=== PATIENT | female | born 1965 | race Caucasian/White ===

== ENCOUNTER → 2016-07-08 | Outpatient (CLI) | payer OTHER ==
[~2016-07-08] MED LIST: ALBU6.7H PO; ALPR-475 PO; BUSP15TA PO; CLON1TAB PO; CYAN100063 PO; FLUT1DIS INH; HYDR12.58 PO; METH5TAB2 PO; MULT-26 PO
== END | disposition home or self-care (01) ==
LOC: LAB 10:20
PROVIDERS: ATTEND Internal Medicine Endocrinology, Diabetes & Metabolism
DX: E89.0 Postprocedural hypothyroidism (principal)
CPT/HCPCS: 36415; 84439; 84443

== ENCOUNTER → 2016-10-13 | Outpatient (CLI) | payer OTHER | END | disposition home or self-care (01) | LOC: CFH 10:13 | PROVIDERS: ATTEND Internal Medicine Endocrinology, Diabetes & Metabolism | DX: E89.0 Postprocedural hypothyroidism (principal) | CPT/HCPCS: 36415; 84439; 84443 ==

== ENCOUNTER → 2017-01-12 | Outpatient (CLI) | payer OTHER | END | disposition home or self-care (01) | LOC: CFH 10:13 | PROVIDERS: ATTEND Internal Medicine Endocrinology, Diabetes & Metabolism | DX: E89.0 Postprocedural hypothyroidism (principal) | CPT/HCPCS: 36415; 84439; 84443 ==

== ENCOUNTER → 2017-04-15 | Outpatient (CLI) | payer OTHER ==
[2017-04-15 12:57] LABS: FREE T4 (FREE THYROXINE) 0.99 ng/dL (0.76-1.46); THYROID STIMULATING HORMONE 0.385 mIU/L (0.358-3.740)
== END | disposition home or self-care (01) ==
LOC: CFH 07:15
PROVIDERS: ATTEND Internal Medicine Endocrinology, Diabetes & Metabolism
DX: E89.0 Postprocedural hypothyroidism (principal)
CPT/HCPCS: 36415; 84439; 84443; 86800

== ENCOUNTER → 2017-10-13 | Outpatient (CLI) | payer OTHER ==
[2017-10-13 12:53] LABS: FREE T4 (FREE THYROXINE) 0.79 ng/dL (0.76-1.46); THYROID STIMULATING HORMONE 1.05 mIU/L (0.358-3.740)
== END | disposition home or self-care (01) ==
LOC: CFH 06:36
PROVIDERS: ATTEND Internal Medicine Endocrinology, Diabetes & Metabolism
DX: E89.0 Postprocedural hypothyroidism (principal)
CPT/HCPCS: 36415; 84439; 84443

== ENCOUNTER → 2017-10-18 | Outpatient (CLI) | payer OTHER | END | disposition home or self-care (01) | LOC: CFH 11:18 | PROVIDERS: ATTEND Internal Medicine Endocrinology, Diabetes & Metabolism | DX: E89.0 Postprocedural hypothyroidism (principal) | CPT/HCPCS: 36415; 84432; 86800 ==

== ENCOUNTER → 2018-01-05 | Outpatient (CLI) | payer OTHER | END | disposition home or self-care (01) | LOC: CFH 07:25 | PROVIDERS: ATTEND Family Medicine | DX: Z12.31 Encounter for screening mammogram for malignant neoplasm of breast (principal) | CPT/HCPCS: 77067 ==

== ENCOUNTER → 2018-01-11 | Outpatient (CLI) | payer OTHER ==
[2018-01-11 16:11] LABS: FREE T4 (FREE THYROXINE) 0.9 ng/dL (0.76-1.46); THYROID STIMULATING HORMONE 0.822 mIU/L (0.358-3.740)
== END | disposition home or self-care (01) ==
LOC: CFH 11:20
PROVIDERS: ATTEND Internal Medicine Endocrinology, Diabetes & Metabolism
DX: E89.0 Postprocedural hypothyroidism (principal)
CPT/HCPCS: 36415; 84432; 84439; 84443; 86800

== ENCOUNTER → 2018-05-16 | Outpatient (CLI) | payer OTHER ==
[~2018-05-16] MED LIST changes: -HYDR12.58 PO; +HYDROCHLOROTH12.5 MG PO
[2018-05-16 16:08] LABS: FREE T4 (FREE THYROXINE) 1.09 ng/dL (0.76-1.46); THYROID STIMULATING HORMONE 0.278 mIU/L (0.358-3.740)
== END | disposition home or self-care (01) ==
LOC: CFH 12:38
PROVIDERS: ATTEND Internal Medicine Endocrinology, Diabetes & Metabolism
DX: E89.0 Postprocedural hypothyroidism (principal)
CPT/HCPCS: 36415; 84432; 84439; 84443; 86800

== ENCOUNTER → 2018-07-21 | Outpatient (CLI) | payer OTHER ==
[2018-07-21 13:51] LABS: FREE T4 (FREE THYROXINE) 0.99 ng/dL (0.76-1.46); THYROID STIMULATING HORMONE 1.11 mIU/L (0.358-3.740)
== END | disposition home or self-care (01) ==
LOC: CFH 10:50
PROVIDERS: ATTEND Internal Medicine Endocrinology, Diabetes & Metabolism
DX: E89.0 Postprocedural hypothyroidism (principal)
CPT/HCPCS: 36415; 84439; 84443

== ENCOUNTER 2018-10-27 09:45 | Outpatient (CLI) | payer OTHER ==
[~2018-10-27 09:45] MED LIST changes: -ALBU6.7H PO; +ALBU6.7H8 PO; -ALPR-475 PO; +ALPR0.5T7 PO
[2018-10-27 13:37] LABS: FREE T4 (FREE THYROXINE) 0.98 ng/dL (0.76-1.46)
== END 2018-10-27 23:59 | disposition home or self-care (01) ==
LOC: CFH 09:45
PROVIDERS: ATTEND Internal Medicine Endocrinology, Diabetes & Metabolism
DX: E89.0 Postprocedural hypothyroidism (principal)
CPT/HCPCS: 36415; 84432; 84439; 84443; 86800

== ENCOUNTER → 2019-02-08 | Outpatient (CLI) | payer OTHER | END | disposition home or self-care (01) | LOC: CFH 07:24 | PROVIDERS: ATTEND Family Medicine | DX: Z12.31 Encounter for screening mammogram for malignant neoplasm of breast (principal); Z87.891 Personal history of nicotine dependence; Z80.3 Family history of malignant neoplasm of breast | CPT/HCPCS: 77063; 77067 ==

== ENCOUNTER 2019-04-27 14:04 | Outpatient (CLI) | payer OTHER ==
[2019-04-27 15:58] LABS: FREE T4 (FREE THYROXINE) 1.16 ng/dL (0.76-1.46)
== END 2019-04-27 23:59 | disposition home or self-care (01) ==
LOC: CFH 14:04
PROVIDERS: ATTEND Physician Assistant Medical
DX: E89.0 Postprocedural hypothyroidism (principal); Z85.850 Personal history of malignant neoplasm of thyroid
CPT/HCPCS: 36415; 84432; 84439; 84443; 86800

== ENCOUNTER → 2019-08-08 | Outpatient (CLI) | payer OTHER | END | disposition home or self-care (01) | LOC: CFH 11:28 | PROVIDERS: ATTEND Internal Medicine Endocrinology, Diabetes & Metabolism | DX: E89.0 Postprocedural hypothyroidism (principal) | CPT/HCPCS: 36415; 84443 ==

== ENCOUNTER 2019-09-13 11:04 | Outpatient (CLI) | payer OTHER ==
[2019-09-13 12:48] LABS: MICROSCOPIC NOT IND
[2019-09-13 12:53] LABS: BASOPHILS # (AUTO) 0.04 x10^3/uL (0-0.1); BASOPHILS % (AUTO) 1 % (0-1); EOSINOPHILS # (AUTO) 0.03 x10^3/uL (0-0.4); EOSINOPHILS % (AUTO) 1 % (1-7); LYMPHOCYTES # (AUTO) 1.89 x10^3/uL (1-3.4); LYMPHOCYTES % (AUTO) 29 % (22-44); MD NO; MEAN CORPUSCULAR HGB CONC 32.4 g/dL (32.4-35.8); MEAN CORPUSCULAR VOLUME 86.3 fL (80-100); MEAN PLATELET VOLUME 8.9 fL (7.4-10.4); MONOCYTES # (AUTO) 0.33 x10^3/uL (0.2-0.8); MONOCYTES % (AUTO) 5 % (2-9); NEUTROPHILS # (AUTO) 4.22 x10^3/uL (1.8-6.8); NEUTROPHILS % (AUTO) 65 % (42-75); PLATELET COUNT 246 x10^3/uL (130-400); RED BLOOD COUNT 5.93 x10^6/uL (3.82-5.3); RED CELL DISTRIBUTION WIDTH 14.4 % (9.6-15.2)
[2019-09-13 12:55] LABS: CHLORIDE 105 mmol/L (98-107)
[2019-09-13 13:05] LABS: ALANINE AMINOTRANSFERASE 49 U/L (12-78); ALBUMIN 4.5 g/dL (3.4-5.0); ALKALINE PHOSPHATASE 65 U/L (45-117); ANION GAP 6 mmol/L (5-15); BILIRUBIN,TOTAL 0.5 mg/dL (0.2-1.0); CALCIUM 9.7 mg/dL (8.5-10.1); CREATININE 0.94 mg/dL (0.55-1.02); TOTAL PROTEIN 7.9 g/dL (6.4-8.2)
[2019-09-13] MEDS ORDERED: OMNIPAQUE 350 MG/ML, 100ML BOTTLE ONE (15:08)
== END 2019-09-13 23:59 | disposition home or self-care (01) ==
LOC: CFH 11:04
PROVIDERS: ATTEND Nurse Practitioner Family
DX: K76.0 Fatty (change of) liver, not elsewhere classified (principal); M51.36 Other intervertebral disc degeneration, lumbar region
CPT/HCPCS: 36415; 74177; 80053; 81003; 85025; 87086; Q9967

== ENCOUNTER 2019-09-15 08:42 | Outpatient (CLI) | payer OTHER ==
[2019-09-15] MEDS ORDERED: GADOTERATE 10 MMOL/20 ML VIAL ONE (10:30)
[2019-10-11] MEDS ORDERED: LIDO700A20 TD (11:04)
[2019-10-11] MEDS ORDERED: LEVO25TA2 PO (11:04)
[2019-10-11] MEDS ORDERED: armour thyroid PO (11:04)
[2019-10-11] MEDS ORDERED: ALPR0.25 PO (11:04)
== END 2019-09-15 23:59 | disposition home or self-care (01) ==
LOC: CFH 08:42
PROVIDERS: ATTEND Nurse Practitioner Family
DX: N28.89 Other specified disorders of kidney and ureter (principal); K76.89 Other specified diseases of liver
CPT/HCPCS: 74183; A9575

== ENCOUNTER → 2019-10-09 | Outpatient (CLI) | payer OTHER ==
[~2019-10-09] MED LIST changes: +ALPR0.25 PO; +LEVO25TA2 PO; +LIDO700A20 TD; +armour thyroid PO
[2019-10-09 15:40] LABS: BASOPHILS # (AUTO) 0.05 x10^3/uL (0-0.1); BASOPHILS % (AUTO) 1 % (0-1); EOSINOPHILS # (AUTO) 0.08 x10^3/uL (0-0.4); EOSINOPHILS % (AUTO) 1 % (1-7); LYMPHOCYTES # (AUTO) 2.16 x10^3/uL (1-3.4); LYMPHOCYTES % (AUTO) 26 % (22-44); MD NO; MEAN CORPUSCULAR HEMOGLOBIN 28.3 pg (27.0-34.8); MEAN CORPUSCULAR VOLUME 85.8 fL (80-100); MEAN PLATELET VOLUME 8.7 fL (7.4-10.4); MONOCYTES # (AUTO) 0.38 x10^3/uL (0.2-0.8); MONOCYTES % (AUTO) 5 % (2-9); NEUTROPHILS # (AUTO) 5.74 x10^3/uL (1.8-6.8); NEUTROPHILS % (AUTO) 68 % (42-75); PLATELET COUNT 239 x10^3/uL (130-400); RED CELL DISTRIBUTION WIDTH 14.6 % (9.6-15.2)
[2019-10-09 15:51] LABS: ANION GAP 7 mmol/L (5-15); CALCIUM 9.6 mg/dL (8.5-10.1); CHLORIDE 103 mmol/L (98-107); CREATININE 1.03 mg/dL (0.55-1.02)
[2019-10-09 16:21] LABS: INTERNATIONAL NORMALIZED RATIO 0.91 (0.93-1.1); PROTHROMBIN TIME 9.6 Seconds (9.6-11.5)
== END | disposition home or self-care (01) ==
LOC: CFH 14:18
PROVIDERS: ATTEND Student in an Organized Health Care Education/Training Program
DX: N28.89 Other specified disorders of kidney and ureter (principal); Z79.01 Long term (current) use of anticoagulants
CPT/HCPCS: 36415; 80048; 81003; 85025; 85610; 85730; 87086

== ENCOUNTER 2019-10-16 10:57 | Day surgery (SDC) | payer OTHER ==
[~2019-10-16] VITALS: Ht 156.2 cm; Wt 73.4 kg
[2019-10-16] MEDS ORDERED: LACTATED RINGERS 1,000 ML IV SCH (11:25)
[2019-10-16 11:29] VITALS: BP 119/85
[2019-10-16] MEDS ORDERED: CHLORHEXIDINE 15 ML UDC MM ONE (11:30)
[2019-10-16] MEDS ORDERED: MIDAZOLAM 1 MG/ML, 2ML ONE (12:48)
[2019-10-16] MEDS ORDERED: FENTANYL PF 250 MCG/5ML ONE (12:48)
[2019-10-16] MEDS ORDERED: ONDANSETRON 2MG/ML, 2ML ONE ×2 (12:48)
[2019-10-16] MEDS ORDERED: ROCURONIUM 10MG/ML,5ML ONE (12:48)
[2019-10-16] MEDS ORDERED: PROPOFOL 10 MG/ML, 20ML ONE (12:48)
[2019-10-16] MEDS ORDERED: SUCCINYLCHOLINE 20 MG/ML, 10ML ONE (12:48)
[2019-10-16] MEDS ORDERED: CEFAZOLIN 1,000 MG ONE (12:48)
[2019-10-16] MEDS ORDERED: DIPHENHYDRAMINE 50 MG/ML, 1ML IVPush PRN (13:30)
[2019-10-16] MEDS ORDERED: LABETALOL 5MG/ML, 20ML IV PRN (13:30)
[2019-10-16] MEDS ORDERED: ONDANSETRON 2MG/ML, 2ML IVPush PRN (13:30)
[2019-10-16] MEDS ORDERED: hydrALAzine 20 MG/ML, 1ML IV PRN (13:30)
[2019-10-16] MEDS ORDERED: MIDAZOLAM 1 MG/ML, 2ML IV PRN (13:30)
[2019-10-16] MEDS ORDERED: EPHEDRINE 50 MG/ML, 1ML IVPush PRN (13:30)
[2019-10-16] MEDS ORDERED: HYDROmorphone 1 MG/ML, 1ML INJ IVPush PRN (13:30)
[2019-10-16] MEDS ORDERED: PROMETHAZINE 12.5 MG SUPP PR PRN (13:30)
[2019-10-16] MEDS ORDERED: KETOROLAC 30 MG/1 ML IVPush PRN (13:30)
[2019-10-16] MEDS ORDERED: ALBUTEROL SULFATE 2.5 MG/3 ML NPPB PRN (13:30)
[2019-10-16] MEDS ORDERED: MEPERIDINE/PF 25MG/0.5ML IVPush PRN (13:30)
[2019-10-16] MEDS ORDERED: DIAZEPAM 5 MG/ML, 2ML IVPush PRN (13:30)
[2019-10-16] MEDS ORDERED: PROMETHAZINE 25 MG/ML, 1ML IVPush PRN (13:30)
[2019-10-16] MEDS ORDERED: OMNIPAQUE 350 MG/ML, 50 ML BOTTLE ONE (13:32)
[2019-10-16] MEDS ORDERED: KETOROLAC 30 MG/1 ML ONE (13:34)
[2019-10-16] MEDS ORDERED: FENTANYL PF 100 MCG/2ML ONE (13:50)
[2019-10-16] MEDS: FENTANYL PF 100 MCG/2ML IV PRN ×2 (13:52→13:58)
[2019-10-16] MEDS ORDERED: MEPERIDINE/PF 25MG/ML,1ML ONE (13:59)
[2019-10-16] MEDS ORDERED: OXYcodone 5 MG/5 ML ORAL.SOL UDC ONE (14:05)
[2019-10-16] MEDS: OXYcodone 5 MG/5 ML ORAL.SOL UDC PO PRN ×2 (14:07→15:13)
[2019-10-16] MEDS ORDERED: DIAZEPAM 5 MG/ML, 2ML ONE (14:11)
[2019-10-16] MEDS ORDERED: PHENAZOPYRIDINE 200 MG TABLET ONE (15:35)
[2019-10-16] MEDS ORDERED: PHENAZOPYRIDINE 200 MG TABLET PO ONE (16:00)
[2019-10-16] MEDS ORDERED: OXYBUTYNIN CHLORIDE 5 MG TABLET PO ONE (16:00)
== END 2019-10-16 16:30 | disposition home or self-care (01) ==
LOC: OUT 10:57
PROVIDERS: ATTEND Student in an Organized Health Care Education/Training Program
DX: N28.89 Other specified disorders of kidney and ureter (principal); Z11.59 Encounter for screening for other viral diseases; I10 Essential (primary) hypertension; E89.0 Postprocedural hypothyroidism; J45.909 Unspecified asthma, uncomplicated; Z79.890 Hormone replacement therapy; Z79.899 Other long term (current) drug therapy; Z87.891 Personal history of nicotine dependence; Z88.5 Allergy status to narcotic agent; Z90.49 Acquired absence of other specified parts of digestive tract; Z98.890 Other specified postprocedural states; Z82.49 Family history of ischemic heart disease and other diseases of the circulatory system; Z83.3 Family history of diabetes mellitus; Z80.0 Family history of malignant neoplasm of digestive organs
CPT/HCPCS: 36415; 52005; 74420; 87635; C1726; C1769; J0330; J0690; J1885; J2175; J2250; J2405; J2704; J3010; J3360; J7120; Q9967

== ENCOUNTER 2019-10-23 13:57 | Outpatient (CLI) | payer OTHER | END 2019-10-23 23:59 | disposition home or self-care (01) | LOC: CFH 13:57 | PROVIDERS: ATTEND Student in an Organized Health Care Education/Training Program | DX: N13.30 Unspecified hydronephrosis (principal) | CPT/HCPCS: 76770 ==

== ENCOUNTER → 2019-11-22 | Outpatient (CLI) | payer OTHER ==
[2019-11-22 12:42] LABS: INTERNATIONAL NORMALIZED RATIO 0.91 (0.93-1.1); PROTHROMBIN TIME 9.4 Seconds (9.6-11.5)
[2019-11-22 12:43] LABS: CHLORIDE 105 mmol/L (98-107)
[2019-11-22 12:52] LABS: BASOPHILS # (AUTO) 0.05 x10^3/uL (0-0.1); BASOPHILS % (AUTO) 1 % (0-1); EOSINOPHILS # (AUTO) 0.04 x10^3/uL (0-0.4); EOSINOPHILS % (AUTO) 1 % (1-7); LYMPHOCYTES # (AUTO) 2.21 x10^3/uL (1-3.4); LYMPHOCYTES % (AUTO) 39 % (22-44); MD NO; MEAN CORPUSCULAR HEMOGLOBIN 28.1 pg (27.0-34.8); MEAN CORPUSCULAR HGB CONC 32.6 g/dL (32.4-35.8); MEAN PLATELET VOLUME 8.4 fL (7.4-10.4); MONOCYTES % (AUTO) 5 % (2-9); NEUTROPHILS # (AUTO) 3.14 x10^3/uL (1.8-6.8); NEUTROPHILS % (AUTO) 55 % (42-75); PLATELET COUNT 239 x10^3/uL (130-400); RED BLOOD COUNT 5.22 x10^6/uL (3.82-5.3); RED CELL DISTRIBUTION WIDTH 15.2 % (9.6-15.2)
[2019-11-22 12:57] LABS: ANION GAP 7 mmol/L (5-15); CALCIUM 9.2 mg/dL (8.5-10.1); CREATININE 0.95 mg/dL (0.55-1.02)
== END | disposition home or self-care (01) ==
LOC: CFH 10:44
PROVIDERS: ATTEND Physician Assistant
DX: N28.89 Other specified disorders of kidney and ureter (principal); Z79.01 Long term (current) use of anticoagulants
CPT/HCPCS: 36415; 80048; 85025; 85610; 85730; 87086

== ENCOUNTER → 2019-11-24 | Outpatient (CLI) | payer OTHER | END | disposition home or self-care (01) | LOC: STAR 13:11 | PROVIDERS: ATTEND Student in an Organized Health Care Education/Training Program | DX: Z01.818 Encounter for other preprocedural examination (principal); Z20.828 Contact with and (suspected) exposure to other viral communicable diseases; N28.89 Other specified disorders of kidney and ureter | CPT/HCPCS: 36415; 87635; 93005 ==

== ENCOUNTER 2019-11-29 08:38 | Observation (INO) | payer OTHER ==
[~2019-11-29] VITALS: Ht 157.5 cm; Wt 83.0 kg
[2019-11-29 09:31] VITALS: BP 112/79
[2019-11-29] MEDS ORDERED: CHLORHEXIDINE 15 ML UDC ONE (09:42)
[2019-11-29] MEDS ORDERED: LACTATED RINGERS 1,000 ML IV SCH (09:43)
[2019-11-29] MEDS ORDERED: CHLORHEXIDINE 15 ML UDC MM ONE (10:00)
[2019-11-29] MEDS ORDERED: MANNITOL PMX 20% 0 ML ONE (10:22)
[2019-11-29] MEDS ORDERED: FUROSEMIDE 20 MG/2 ML ONE (10:22)
[2019-11-29] MEDS ORDERED: BUPIVACAINE/PF 0.25% ONE (10:22)
[2019-11-29] MEDS ORDERED: EPINEPHRINE 1 MG/ML, 1ML ONE (10:23)
[2019-11-29] MEDS ORDERED: FENTANYL PF 250 MCG/5ML ONE (10:36)
[2019-11-29] MEDS ORDERED: SUGAMMADEX 200 MG/2 ML IVPush ONE (12:00)
[2019-11-29] MEDS ORDERED: CEFOTETAN 2 GM ONE (12:00)
[2019-11-29] MEDS ORDERED: METOPROLOL 1 MG/ML, 5ML ONE (12:00)
[2019-11-29] MEDS ORDERED: MIDAZOLAM 1 MG/ML, 2ML ONE (12:03)
[2019-11-29] MEDS ORDERED: BUPIVACAINE/PF-EPI 0.25% 1:200K INFIL ONE (13:12)
[2019-11-29] MEDS ORDERED: ONDANSETRON 2MG/ML, 2ML ONE (13:57)
[2019-11-29] MEDS ORDERED: PROPOFOL 10 MG/ML, 20ML ONE (13:57)
[2019-11-29] MEDS ORDERED: GLYCOPYRROLATE 0.2MG/1ML, 5ML ONE (13:57)
[2019-11-29] MEDS ORDERED: CEFAZOLIN 1,000 MG ONE ×2 (13:57)
[2019-11-29] MEDS ORDERED: DEXAMETHASONE 4 MG/ML, 1ML ONE (13:57)
[2019-11-29] MEDS ORDERED: SUCCINYLCHOLINE 20 MG/ML, 10ML ONE (13:57)
[2019-11-29] MEDS ORDERED: NEOSTIGMINE 1 MG/ML, 10ML ONE (13:57)
[2019-11-29] MEDS ORDERED: ROCURONIUM 10MG/ML,5ML ONE (13:57)
[2019-11-29] MEDS ORDERED: FENTANYL PF 100 MCG/2ML ONE ×2 (15:40→16:36)
[2019-11-29] MEDS ORDERED: hydrALAzine 20 MG/ML, 1ML IV PRN (16:30)
[2019-11-29] MEDS ORDERED: PROMETHAZINE 25 MG/ML, 1ML IVPush PRN (16:30)
[2019-11-29] MEDS ORDERED: HYDROmorphone 1 MG/ML, 1ML INJ IV PRN (16:30)
[2019-11-29] MEDS ORDERED: LABETALOL 5MG/ML, 20ML IV PRN (16:30)
[2019-11-29] MEDS ORDERED: ALBUTEROL SULFATE 2.5 MG/3 ML NPPB PRN (16:30)
[2019-11-29] MEDS ORDERED: ONDANSETRON 2MG/ML, 2ML IV PRN (16:30)
[2019-11-29] MEDS ORDERED: ACETAMINOPHEN 325 MG TABLET PO PRN (16:30)
[2019-11-29] MEDS ORDERED: KETOROLAC 30 MG/1 ML IM PRN (16:30)
[2019-11-29] MEDS ORDERED: HYDROmorphone 1 MG/ML, 1ML INJ ONE ×2 (16:36→16:57)
[2019-11-29] MEDS: HYDROmorphone 1 MG/ML, 1ML INJ IVPush PRN ×4 (16:37→17:07)
[2019-11-29] MEDS: FENTANYL PF 100 MCG/2ML IV PRN ×2 (16:45→17:00)
[2019-11-29] MEDS ORDERED: OXYcodone 5 MG/5 ML ORAL.SOL UDC ONE (16:57)
[2019-11-29 16:58] LABS: ALBUMIN 3.4 g/dL (3.4-5.0); ANION GAP 5 mmol/L (5-15); CALCIUM 9.1 mg/dL (8.5-10.1); CHLORIDE 103 mmol/L (98-107); CREATININE 1.08 mg/dL (0.55-1.02)
[2019-11-29] MEDS: OXYcodone 5 MG/5 ML ORAL.SOL UDC PO PRN ×3 (17:08→23:12)
[2019-11-29] MEDS ORDERED: PROMETHAZINE 25 MG/ML, 1ML ONE (17:18)
[2019-11-29 18:27] VITALS: BP 144/86
[2019-11-29] MEDS ORDERED: HEPARIN 5,000 UNITS/ML, 1ML SQ SCH (18:30)
[2019-11-29] MEDS ORDERED: ALBUTEROL HFA 90 MCG/SPRAY INH PRN (19:00)
[2019-11-29] MEDS: SODIUM CHLORIDE 0.9% 1,000 ML IV SCH (19:00)
[2019-11-29] MEDS: ACETAMINOPHEN 325 MG TABLET PO SCH (21:32)
[2019-11-29] MEDS: BUSPIRONE 5 MG TABLET PO SCH (21:32)
[2019-11-29] MEDS: DOCUSATE 100 MG CAPSULE PO SCH (21:32)
[2019-11-29] MEDS: METHADONE 10 MG TABLET PO SCH (21:32)
[2019-11-29 23:20] VITALS: BP 121/71
[2019-11-30] MEDS: SODIUM CHLORIDE 0.9% 1,000 ML IV SCH (02:09)
[2019-11-30 03:47] VITALS: BP 93/55
[2019-11-30] MEDS: ACETAMINOPHEN 325 MG TABLET PO SCH ×2 (04:46→08:27)
[2019-11-30] MEDS: THYROID 30 MG TABLET PO SCH ×2 (04:47→14:00)
[2019-11-30 04:56] LABS: ANION GAP 6 mmol/L (5-15); CALCIUM 8.6 mg/dL (8.5-10.1); CHLORIDE 101 mmol/L (98-107); CREATININE 1.13 mg/dL (0.55-1.02)
[2019-11-30] MEDS: OXYcodone 5 MG/5 ML ORAL.SOL UDC PO PRN ×4 (04:59→12:56)
[2019-11-30 06:58] VITALS: BP 137/78
[2019-11-30] MEDS ORDERED: HEPARIN 5,000 UNITS/ML, 1ML SQ SCH (08:00)
[2019-11-30] MEDS: DOCUSATE 100 MG CAPSULE PO SCH (08:25)
[2019-11-30] MEDS: BUSPIRONE 5 MG TABLET PO SCH (08:27)
[2019-11-30] MEDS: METHADONE 10 MG TABLET PO SCH (08:28)
[2019-11-30] MEDS ORDERED: ADVAIR 100-50 DISKUS INH SCH (09:00)
[2019-11-30] MEDS ORDERED: POLYETHYLENE GLYCOL 17 GM PACKET PO SCH (09:00)
[2019-11-30] MEDS ORDERED: HYDROCHLOROTHIAZIDE 12.5 MG CAPSULE PO SCH (09:00)
[2019-11-30] MEDS ORDERED: CALCIUM CARBONATE 500 MG TAB.CHEW PO PRN (11:30)
[2019-11-30 13:24] VITALS: BP 143/84
[2019-11-30] MEDS ORDERED: OXYC10TA6 PO (14:25)
[2019-11-30] MEDS ORDERED: DOCU-131 PO (14:27)
[2019-12-01] MEDS ORDERED: LEVOTHYROXINE 25 MCG TABLET PO SCH (08:00)
== END 2019-11-30 14:52 | disposition home or self-care (01) ==
LOC: OR 08:38 → 4NE 18:16 → OUT 18:40 → DCLOUNGE 11-30 14:43
PROVIDERS: ADMIT Student in an Organized Health Care Education/Training Program; ATTEND Student in an Organized Health Care Education/Training Program
DX: N28.89 Other specified disorders of kidney and ureter (principal); J45.909 Unspecified asthma, uncomplicated; E03.9 Hypothyroidism, unspecified; G89.29 Other chronic pain; Z90.5 Acquired absence of kidney; Z79.899 Other long term (current) drug therapy; Z87.891 Personal history of nicotine dependence; Z87.448 Personal history of other diseases of urinary system
CPT/HCPCS: 36415; 50543; 76998; 80048; 82040; 85014; 85018; 86850; 86900; 88305; 96361; 96372; 96374; 96375; C1729; C1760; G0378; J0171; J0330; J1100; J1170; J1644; J2250; J2405; J2550; J2704; J3010; J3490; J7030; J7120; J0690; J2710; J1940

== ENCOUNTER → 2020-01-10 | Outpatient (CLI) | payer OTHER ==
[~2020-01-10] MED LIST changes: +DOCU-131 PO; +OMNIPAQUE 350 MG/ML, 100ML BOTTLE ONE; +OXYC10TA6 PO
== END | disposition home or self-care (01) ==
LOC: CFH 13:00
PROVIDERS: ATTEND Student in an Organized Health Care Education/Training Program
DX: K76.0 Fatty (change of) liver, not elsewhere classified (principal); N28.89 Other specified disorders of kidney and ureter; Z85.528 Personal history of other malignant neoplasm of kidney
CPT/HCPCS: 74177; 82565; Q9967

== ENCOUNTER → 2020-03-01 | Outpatient (CLI) | payer OTHER ==
[~2020-03-01] MED LIST changes: -OMNIPAQUE 350 MG/ML, 100ML BOTTLE ONE
[2020-03-01 12:43] LABS: FREE T4 (FREE THYROXINE) 0.94 ng/dL (0.76-1.46)
== END | disposition home or self-care (01) ==
LOC: LAB 09:32
PROVIDERS: ATTEND Internal Medicine Endocrinology, Diabetes & Metabolism
DX: E89.0 Postprocedural hypothyroidism (principal); Z85.850 Personal history of malignant neoplasm of thyroid
CPT/HCPCS: 36415; 84432; 84439; 84443; 86800

== ENCOUNTER 2020-12-12 10:12 | Outpatient (CLI) | payer OTHER ==
[~2020-12-12 10:12] MED LIST changes: +METH-648 PO; -METH5TAB2 PO
[2020-12-12] MEDS ORDERED: GADOTERATE 10 MMOL/20 ML VIAL ONE (10:30)
== END 2020-12-12 23:59 | disposition home or self-care (01) ==
LOC: CFH 10:12
PROVIDERS: ATTEND Student in an Organized Health Care Education/Training Program
DX: K76.0 Fatty (change of) liver, not elsewhere classified (principal); N28.89 Other specified disorders of kidney and ureter; Z85.528 Personal history of other malignant neoplasm of kidney
CPT/HCPCS: 74183; A9575